=== PATIENT | female | born 1995 | race Caucasian/White ===

== ENCOUNTER 2017-05-14 07:20 | Emergency (ER) | payer OTHER ==
[2017-05-14 07:26] VITALS: BP 112/68
--- NOTE | 2017-05-14 08:24 | UC ---
Complaint Female HPI - HPI Summary HPI Summary: 1. 3-4 DAYS OF DYSURIA, FREQUENCY AND URGENCY. NO BACK PAIN, NAUSEA OR FEVER. PT REPORTS THIS IS HER 7TH OR 8TH UTI IN 2 YEARS. 2. ONSET OF LEFT LOWER EYE LID EDEMA AND DISCOMFORT 2 DAYS AGO. NO VISUAL DISTURBANCE. HAS BEEN USING A WARM COMPRESS WITH NO RELIEF. - History Of Current Complaint Chief Complaint: UCEye Stated Complaint: EYE ISSUE URINARY ISSUE Time Seen by Provider: 05/14/17 07:29 Hx Obtained From: Patient Hx Last Menstrual Period: 04/16/17 Onset/Duration: Gradual Onset, Lasting Days, Still Present Severity Initially: Moderate Severity Currently: Moderate Pain Intensity: 3 Pain Scale Used: 0-10 Numeric Character: Burning Aggravating Factor(s): Urination Alleviating Factor(s): Nothing Associated Signs And Symptoms: Negative: Fever, Back Pain, Vaginal Discharge, Nausea - Allergies/Home Medications Allergies/Adverse Reactions: Allergies Allergy/AdvReac Type Severity Reaction Status Date / Time No Known Allergies Allergy Verified 05/14/17 07:27 PMH/Surg Hx/FS Hx/Imm Hx Previously Healthy: Yes - Surgical History Surgical History: None - Family History Known Family History: Negative: Hypertension - Social History Alcohol Use: Rare Substance Use Type: Marijuana Smoking Status (MU): Never Smoked Tobacco Review of Systems Constitutional: Negative Eyes: Other - LEFT LOWER EYELID EDEMA/ERYTHEMA Respiratory: Negative Cardiovascular: Negative Gastrointestinal: Negative Genitourinary: Dysuria, Frequency, Urgency All Other Systems Reviewed And Are Negative: Yes Physical Exam Triage Information Reviewed: Yes Appearance: Well-Appearing, No Pain Distress, Well-Nourished Vital Signs: Initial Vital Signs Temp 98.9 F 05/14/17 07:22 Pulse 66 05/14/17 07:22 Resp 18 05/14/17 07:22 BP 112/68 05/14/17 07:22 Pulse Ox 100 05/14/17 07:22 Vital Signs Reviewed: Yes Eyes: Positive: Conjunctiva Clear, Other: - LEFT LOWER EYELID EDEMA/ERYTHEMA. VISIBLE CLOGGED DUCT LOWER LID CONJUNCTIVAL SURFACE TOWARD NASAL SIDE.. Negative: Discharge ENT: Positive: Hearing grossly normal Neck: Positive: Supple Respiratory: Positive: No respiratory distress, No accessory muscle use Cardiovascular: Positive: Pulses Normal Abdomen Description: Positive: Nontender, Soft. Negative: CVA Tenderness (R), CVA Tenderness (L), Distended, Guarding Musculoskeletal: Positive: No Edema Neurological: Positive: Alert Psychological: Positive: Age Appropriate Behavior Skin: Positive: Other - MILD ERYTHEMA LEFT LOWER EYE LID Diagnostics - Laboratory Diagnostic Studies Completed/Ordered: URINE DIP SP. GR 1.030, 3+ LEUKS, 3+ PROTEIN, 2+ BLOOD, 1+ BILI Complaint Female Dx - Differential Dx/Diagnosis Provider Diagnoses: 1. UTI. 2. STYE - LEFT LOWER EYELID Discharge - Discharge Plan Condition: Stable Disposition: HOME Prescriptions: Erythromycin OPHTH.OINT* [Ilotycin OPHTH.OINT*] 1 applic LEFT EYE QID #1 tube Sulfamethox/Trimethoprim DS* [Bactrim DS 800/160 TAB*] 1 tab PO BID #10 tab Patient Education Materials: Urinary Tract Infection in Women (ED), Stye (ED) Referrals: Maura Allen MD [Primary Care Provider] - Additional Instructions: NO MAKE-UP UNTIL EYE SYMPTOMS ARE RESOLVED. SEEK FOLLOW-UP IF YOU ARE NOT IMPROVING EXPECTED.
[2017-05-18 13:00] LABS: Ureaplasma Source URINE; Ureaplasma parvum PCR Negative; Ureaplasma urealyticum PCR Negative
== END 2017-05-14 08:03 | disposition home or self-care (01) ==
LOC: UCEAST 07:20
DX: N39.0 Urinary tract infection, site not specified (principal); B96.20 Unspecified Escherichia coli [E. coli] as the cause of diseases classified elsewhere; Z32.02 Encounter for pregnancy test, result negative; H00.015 Hordeolum externum left lower eyelid; F12.90 Cannabis use, unspecified, uncomplicated
CPT/HCPCS: 81003; 84702; 87077; 87086; 87186; 87798; 99212; G0463